=== PATIENT | male | born 1950 | race Hispanic/Latino ===

== ENCOUNTER 2017-02-08 08:08 | Day surgery (SDC) | payer MEDICARE, MEDICAID ==
[2017-02-08] MEDS ORDERED: Lactated Ringer's 500 ML IV ONE (08:56)
[2017-02-08 09:14] VITALS: TEMP 97.8
[2017-02-08] MEDS ORDERED: Propofol 10 mg/ml Inj (20 ML) ONE ×2 (10:32→11:13)
[2017-02-08 11:19] VITALS: O2SAT 99
[2017-02-08 11:43] VITALS: BP 116/65; PULSE 64; RESP 16
== END 2017-02-08 12:28 | disposition home or self-care (01) ==
LOC: H.ENDO 08:08
PROVIDERS: ATTEND Internal Medicine Gastroenterology
DX: Z12.11 Encounter for screening for malignant neoplasm of colon (principal); E78.5 Hyperlipidemia, unspecified; K64.1 Second degree hemorrhoids; D12.7 Benign neoplasm of rectosigmoid junction; D49.0 Neoplasm of unspecified behavior of digestive system; K63.3 Ulcer of intestine; K62.6 Ulcer of anus and rectum; K63.89 Other specified diseases of intestine; R19.4 Change in bowel habit; R15.9 Full incontinence of feces; Z21 Asymptomatic human immunodeficiency virus [HIV] infection status; K62.5 Hemorrhage of anus and rectum; K92.2 Gastrointestinal hemorrhage, unspecified; K52.9 Noninfective gastroenteritis and colitis, unspecified
CPT/HCPCS: 45380; 45381; 88305; J2001; J2704; J7120

== ENCOUNTER 2017-03-22 07:50 | Day surgery (SDC) | payer MEDICARE, MEDICAID ==
[2017-03-22] MEDS ORDERED: Lactated Ringer's 500 ML IV ONE (08:29)
[2017-03-22] MEDS ORDERED: Propofol 10 mg/ml Inj (20 ML) ONE (08:55)
[2017-03-22] MEDS ORDERED: Lidocaine 2% MPF (5 ml) Inj ONE (08:56)
[2017-03-22 11:19] VITALS: PULSE 68; TEMP 96.8; O2SAT 99
[2017-03-22 11:27] VITALS: BP 100/57; RESP 19
[2017-03-24 17:43] LABS: CYCLOSPORA Not Detected (Not Detected); ISOSPORA Not Detected (Not Detected)
== END 2017-03-22 11:52 | disposition home or self-care (01) ==
LOC: H.ENDO 07:50
PROVIDERS: ATTEND Internal Medicine Gastroenterology
DX: R19.7 Diarrhea, unspecified (principal); K62.5 Hemorrhage of anus and rectum; K92.2 Gastrointestinal hemorrhage, unspecified; K52.9 Noninfective gastroenteritis and colitis, unspecified; K62.6 Ulcer of anus and rectum; K63.3 Ulcer of intestine; K62.89 Other specified diseases of anus and rectum; K63.89 Other specified diseases of intestine; R21 Rash and other nonspecific skin eruption; K64.4 Residual hemorrhoidal skin tags
CPT/HCPCS: 45380; 87015; 87045; 87177; 87207; 87209; 87230; 87272; 88305; J2704; J7120

== ENCOUNTER 2017-08-23 10:05 | Day surgery (SDC) | payer MEDICARE, MEDICAID ==
[2017-08-23] MEDS ORDERED: Lactated Ringer's 1,000 ML IV ONE (11:05)
[2017-08-23 11:19] VITALS: O2SAT 100
[2017-08-23] MEDS ORDERED: Lidocaine PF 2% (5 ml) Inj (For Cardiac Arrhy) IV ONE (13:02)
[2017-08-23] MEDS ORDERED: Propofol 10 mg/ml Inj (20 ML) ONE (13:02)
[2017-08-23 14:29] VITALS: TEMP 97
[2017-08-23 14:46] VITALS: BP 105/67; PULSE 65; RESP 14
== END 2017-08-23 15:11 | disposition home or self-care (01) ==
LOC: H.ENDO 10:05
PROVIDERS: ATTEND Internal Medicine Gastroenterology
DX: K60.2 Anal fissure, unspecified (principal); K52.3 Indeterminate colitis; E78.5 Hyperlipidemia, unspecified; Z21 Asymptomatic human immunodeficiency virus [HIV] infection status; K64.8 Other hemorrhoids; K51.20 Ulcerative (chronic) proctitis without complications
CPT/HCPCS: G0105; J2001; J2704; J7120

== ENCOUNTER 2018-06-30 10:05 | Day surgery (SDC) | payer MEDICARE, MEDICAID ==
[2018-06-19 11:10] VITALS: BMI 23.4
[2018-06-30 11:33] VITALS: BP 125/69; PULSE 74; RESP 18; TEMP 98; O2SAT 98
[2018-06-30] MEDS ORDERED: Bupivacaine HCl 0.5% PF (30 ml) Inj ONE (11:46)
[2018-06-30] MEDS ORDERED: Lidocaine 1% Inj (20ml) ONE (11:46)
[2018-06-30] MEDS ORDERED: ceFAZolin IV 1 gm in Dextrose 2 GM/100 ML BAG IVPB ONE (11:47)
--- NOTE | 2018-06-30 11:48 | CP.SDSHP ---
Same Day Surgery H & P - History Proposed Procedure: right foot fourth and fifth digit hammertoe correction Pre-Op Diagnosis: Right fourth and fifth digit hammertoe deformity - Allergies Allergies: Allergies No Known Allergies Allergy (Verified 06/19/18 11:10) - Physical Exam Vital Signs: Vital Signs 06/30/18 11:28 Temperature 98 F Pulse Rate 74 Respiratory 18 Rate Blood Pressure 125/69 O2 Sat by Pulse 98 Oximetry - Impression Pt. Evaluated Today:Candidate for Anesthesia & Procedure: Yes - Date & Time Date: 06/30/18 Time: 11:48 Short Stay Discharge - Short Stay Discharge Admitting Diagnosis/Reason for Visit: L84 Disposition: HOME/ ROUTINE Referrals: Felice Kumar MD [Primary Care Provider] -
--- NOTE | 2018-06-30 11:52 | CP.PCM.PN ---
Subjective - Date & Time of Evaluation Date of Evaluation: 06/30/18 Time of Evaluation: 11:49 - Subjective Subjective: Podiatry progress note for Dr. Brian 68M seen and evaluated in SDS preoperatively for right fourth and fifth digit hammertoe correction. Patient states that he has been dealing with pain and discomfort as well as callus formation secondary to these deformities for years. States that conservative treatment has failed. States that he has not eaten since last night and that he has not had reactions to anesthesia in the past. Denies N/V/F/C/SOB/CP today and states that he was given clearance by his primary doctor prior to todays visit. PMHx: HIV PSHx: galbladder All: NKDA Objective - Vital Signs/Intake and Output Vital Signs (last 24 hours): Temp Pulse Resp BP Pulse Ox 98 F 74 18 125/69 98 06/30/18 11:28 06/30/18 11:28 06/30/18 11:28 06/30/18 11:28 06/30/18 11:28 - Constitutional Appears: Well, Non-toxic, No Acute Distress - Head Exam Head Exam: ATRAUMATIC, NORMOCEPHALIC - Extremities Exam Additional comments: RLE focused VASC: DP and PT pulses palpable; cap refill <3 seconds to all digits; temp gradient warm to cool; no edema noted to LE DERM: no open lesions or wounds; hypertrophic lesion/heloma molle noted to the medial aspect of the fifth digit; all other skin temp and turgor wnl ORTHO: pain on palpation of the medially located heloma molle on the fifth digit; hammering of digits 4 and 5; no other pathology noted NEURO: gross and protective sensation intact - Neurological Exam Neurological Exam: Alert, Awake, Oriented x3 - Psychiatric Exam Psychiatric exam: Normal Affect, Normal Mood Assessment and Plan - Assessment and Plan (Free Text) Assessment: 68M with pmhx of HIV seen and evaluated preoperatively with right fourth and fifth digit hammertoe deformity for surgical correction Plan: Pt was seen and examined in SDS Pt NPO status was confirmed All pre-op testing and clearance in chart Pt has exhausted all conservative treatment at this time and is opting for surgical intervention Pt was explained procedure and post-operative course All pt's questions were answered to satisfaction No guarantees were made Pt understands all risks, benefits and complications of procedure Pt will follow-up with Dr. Brian within 1 week of surgery
[2018-06-30] MEDS ORDERED: Propofol 10 mg/ml Inj (20 ML) ONE (11:59)
[2018-06-30] MEDS ORDERED: Phenylephrine 10 mg/ml Inj ONE (11:59)
[2018-06-30] MEDS ORDERED: Lidocaine 2% MPF (5 ml) Inj ONE (12:00)
[2018-06-30 12:25] LABS: BLOOD UREA NITROGEN 21 mg/dl (9-20); CALCIUM 9.3 mg/dL (8.4-10.2); GFR NON-AFRICAN AMERICAN > 60
== END 2018-06-30 13:00 | disposition home or self-care (01) ==
LOC: H.OPSURG 10:05
PROVIDERS: ATTEND Podiatrist
DX: Z02.89 Encounter for other administrative examinations (principal)